=== PATIENT | female | born 1940 | race Caucasian/White ===

== ENCOUNTER → 2017-07-10 | Outpatient (CLI) | payer OTHER ==
[~2017-07-10] MED LIST: ASPEC81 PO; ENAL10TA88 PO; FSM70 PO; LOVA20TA4 PO
--- NOTE | 2017-07-10 16:57 | DIAGNOSTIC IMAGING REPORT ---
RIGHT ANKLE 3 VIEWS HISTORY: RT ANKLE AND JOINT PAIN OF RT FOOT COMPARISON: None. FINDINGS: There is no fracture or dislocation. Mild soft tissue swelling. No radiopaque foreign bodies. Small plantar and posterior calcaneal spurs. IMPRESSION: No fractures. Electronically signed by: Zeb Ferrell M.D. 07/10/2017 4:56 PM Dictated Date/Time: 07/10/2017 4:55 PM
--- NOTE | 2017-07-10 16:58 | DIAGNOSTIC IMAGING REPORT ---
RIGHT KNEE 2 VIEWS HISTORY: Right KNEE PAIN COMPARISON: None. FINDINGS: There is no fracture or dislocation. Soft tissues are unremarkable. No radiopaque foreign bodies. No knee effusion. Tiny marginal osteophytes at the patella and medial compartment consistent with mild degenerative change. IMPRESSION: No fractures. Electronically signed by: Zeb Ferrell M.D. 07/10/2017 4:57 PM Dictated Date/Time: 07/10/2017 4:56 PM
== END | disposition home or self-care (01) ==
LOC: C.RAD 16:03
PROVIDERS: ATTEND Hospitalist
DX: M25.561 Pain in right knee (principal); M25.571 Pain in right ankle and joints of right foot